=== PATIENT | male | born 1980 | race Caucasian/White ===

== ENCOUNTER 2017-09-16 07:25 | Inpatient (IN) | payer MEDICAID, OTHER ==
[~2017-09-16] VITALS: Ht 185.4 cm; Wt 86.9 kg
[2017-09-16] VITALS (10 sets, daily range): BP systolic 107–144; BP diastolic 61–93; PULSE 53–70; RESP 10–17; TEMP 98.1; Ht 185.4 cm; Wt 86.9 kg
[2017-09-16] MEDS ORDERED: ONDANSETRON 4 MG INJ IV STA (07:49)
[2017-09-16] MEDS ORDERED: SOD CHLORIDE 0.9% 1,000 ML IV STA (07:49)
[2017-09-16] MEDS ORDERED: KETOROLAC 30 MG INJ IV STA (07:49)
[2017-09-16] MEDS ORDERED: DEXAMETHASONE 10 MG/ML 1 ML INJ IV ONE (08:00)
[2017-09-16 08:23] LABS: BASOPHILS % 0.3 % (0.0-2.0); EOSINOPHILS % 0.3 % (0.0-7.0); HEMATOCRIT 42.6 % (42.0-52.0); HEMOGLOBIN 15.4 g/dl (14.0-18.0); LYMPHOCYTES # 3.1 10^3/ul (0.8-2.9); LYMPHOCYTES % 28.3 % (15.0-51.0); MEAN CORPUSCULAR HEMOGLOBIN 31.4 pg (29.0-33.0); MEAN CORPUSCULAR HGB CONC 36.2 g/dl (32.0-37.0); MEAN CORPUSCULAR VOLUME 86.8 fl (82.0-101.0); MEAN PLATELET VOLUME 11.2 fl (7.4-10.4); MONOCYTE # 1.2 10^3/ul (0.3-0.9); MONOCYTES % 10.7 % (0.0-11.0); NEUTROPHIL # 6.5 10^3/ul (1.6-7.5); NEUTROPHILS % 59.8 % (39.0-77.0); PLATELET COUNT 196 10^3/UL (140-415); RED BLOOD COUNT 4.91 10^6/ul (4.70-6.10); RED CELL DISTRIBUTION WIDTH 12.8 % (11.5-14.5); WHITE BLOOD COUNT 10.8 10^3/ul (4.8-10.8)
[2017-09-16 08:27] LABS: ADD UMIC NO; UR ASCORBIC ACID NEGATIVE (NEGATIVE); UR BILIRUBIN (Dip) NEGATIVE (NEGATIVE); UR BLOOD (Dip) NEGATIVE (NEGATIVE); UR CLARITY CLEAR (CLEAR); UR COLOR STRAW (YELLOW); UR GLUCOSE (Dip) NEGATIVE (NEGATIVE); UR KETONES (Dip) NEGATIVE (NEGATIVE); UR LEUKOCYTE ESTERASE (Dip) NEGATIVE Leu/ul (NEGATIVE); UR NITRITE (Dip) NEGATIVE (NEGATIVE); UR SPECIFIC GRAVITY (Dip) 1.006 (1.003-1.030); UR TOTAL PROTEIN (Dip) NEGATIVE (NEGATIVE); UR UROBILINOGEN (Dip) NEGATIVE (NEGATIVE)
[2017-09-16 08:44] LABS: ALBUMIN 4.6 g/dl (3.3-4.9); ALBUMIN/GLOBULIN RATIO 1.43; BILIRUBIN,INDIRECT 0.5 mg/dl (0-1.1); BILIRUBIN,TOTAL 0.5 mg/dl (0.2-1.3); CALCIUM 9.2 mg/dl (8.4-10.2); CREATININE 0.83 mg/dl (0.61-1.24); POTASSIUM 3.8 mmol/L (3.5-5.1); TOTAL PROTEIN 7.8 g/dl (6.1-8.1)
[2017-09-16] MEDS ORDERED: SOD CHLORIDE 0.9% 100 ML ONE (09:33)
[2017-09-16] MEDS ORDERED: IOHEXOL 300MG/ML 150 ML BTL ONE (09:33)
--- NOTE | 2017-09-16 10:47 | RADRPT ---
PROCEDURE: CT scan of the neck with contrast. CLINICAL INDICATION: pain, swelling TECHNIQUE: CT scan of the neck was performed. The patient was examined with the use of intravenou s administration of 100 cc of Isovue 300 iodinated contrast. No reported complications occurred. One or more of the following dose reduction techniques were used: Automated exposure control, Adjust ment of the mA and/or kV according to patient size, and/or use of iterative reconstruction technique . DICOM images are available. DOSE: CTDI = 9 mGy and the DLP = 229 mGy-cm. COMPARISON: None available FINDINGS: There is abnormal soft tissue thickening, ill-defined fluid density, and small foci of subcutaneous air identified in the anterior neck at the level of the thyroid cartilage. There is also small foci of air extending deeper into the neck into the right paraglottic space resulting in mild medial caitlin ation of the right vocal cord. No well-defined rim-enhancing fluid collection identified. Prominent submental lymph nodes and scattered upper cervical lymph nodes are seen. The bilateral parotid and submandibular glands are unremarkable The thyroid gland is unremarkable. The bilateral prestyloid parapharyngeal spaces and retropharyngeal spaces are unremarkable. The major cervical vasculature are patent. Left anterior ethmoid and left maxillary sinus mucosal thickening with fluid. Mastoids are clear. The osseous structures are unremarkable. No aggressive osteoblastic or osteolytic lesions of the vis ualized skull base or cervical spine. The visualized lung apices are clear. IMPRESSION: There is abnormal soft tissue thickening, ill-defined fluid density, and small foci of subcutaneous air identified in the anterior neck at the level of the thyroid cartilage. There is also small foci of air extending deeper into the neck into the right paraglottic space resulting in mild medial caitlin ation of the right vocal cord. The findings suggest anterior neck cellulitis and phlegmon without we ll-defined rim-enhancing abscess on this exam. Recommend close follow-up. Prominent submental and scattered upper cervical lymph nodes are probably reactive. Left paranasal sinus mucosal thickening with fluid. RPTAT: AA .Desean Friend MD, MD Date Time Electronically viewed and signed by .Desean Friend MD, on 09/16/2017 10:47 .T/
[2017-09-16] MEDS ORDERED: VANCOMYCIN 1 GM (PMX) 250 ML IVPB SCH (11:00)
[2017-09-16] MEDS ORDERED: CLINDAMYCIN 600 MG/D5W (PMX) 50 ML IVPB SCH (11:00)
--- NOTE | 2017-09-16 11:22 | ERD ---
ER Documentation Chief Complaint Chief Complaint SWELLING ON THROAT X1 WEEK, SEEN PMD 2 DAYS AGO (NIRAJ PHILLIPS PA-C) HPI 37-year-old male complaining of swelling to throat 1 week. Patient states that he was seen by his primary doctor 2 days ago was given Sudafed and pain medication. Patient states that he feels a clicking when he tries to swallow and it hurts to move his neck. Denies fever. Denies runny nose or cough. Patient feels like his sore throat is getting worse and is concerned that he may have difficulty breathing or swallowing because of the swelling. Denies medical problems. (NIRAJ PHILLIPS PA-C) ROS All systems reviewed and are negative except as per history of present illness. (NIRAJ PHILLIPS PA-C) Medications Home Meds No Active Prescriptions or Reported Meds Allergies Allergies: Coded Allergies: naproxen (Verified Allergy, Unknown, LIP SWELLING, 09/16/17) PMhx/Soc Medical and Surgical Hx: pt denies Medical Hx, pt denies Surgical Hx Hx Alcohol Use: Yes (occ) Hx Substance Use: No Hx Tobacco Use: No Smoking Status: Never smoker (NIRAJ PHILLIPS PA-C) Physical Exam Vitals Vital Signs Date Time Temp Pulse Resp B/P Pulse Ox O2 Delivery O2 Flow Rate FiO2 09/16/17 13:03 98.3 53 16 115/58 97 09/16/17 07:29 97.9 71 18 142/102 98 (KATIE FRANCOIS MD) Physical Exam GENERAL: The patient is well-appearing, well-nourished, in no acute distress HEENT: Atraumatic. Conjunctivae are pink. Pupils equal, round, and reactive to light. There is no scleral icterus. Tympanic membranes clear bilaterally. Oropharynx clear. No nystagmus or photophobia. No pain to the floor of the mouth NECK: Tender to palpation and fullness noted around the thyroid. No erythema or fluctuance. CHEST: Clear to auscultation bilaterally. There are no rales, wheezes or rhonchi. HEART: Regular rate and rhythm. No murmurs, clicks, rubs or gallops. No S3 or S4. (NIRAJ PHILLIPS PA-C) Physical Exam Const: Well-appearing, no apparent distress, nontoxic, no respiratory distress Head: Atraumatic Eyes: Normal conjunctiva, no periorbital swelling ENT: Normal external ears, nose, mouth. No intraoral swelling, erythema, or exudates. No tenderness or rigidity to palpation underneath the tongue. No elevation of the tongue. No stridor. No drooling. Somewhat hoarse voice Neck: Full range of motion, no meningismus, no crepitus to palpation. No skin discoloration. There is mild swelling of the anterior neck very subtle. Shotty cervical lymphadenopathy. Resp: Clear to auscultation bilaterally Cardio: Regular rate and rhythm, no murmur Abd: Soft, non tender, non distended. Normal bowel sounds Skin: No petechiae or rashes Back: No midline or flank tenderness Ext: No cyanosis, or edema Neur: Awake and alert Psych: Normal Mood and Affect (EKMEKKATIE AMOR MD) Result Diagram: 09/16/17 0800 09/16/17 0800 Results 24 hrs Laboratory Tests Test 09/16/17 08:00 09/16/17 08:15 White Blood Count 10.810^3/ul Red Blood Count 4.9110^6/ul Hemoglobin 15.4g/dl Hematocrit 42.6% Mean Corpuscular Volume 86.8fl Mean Corpuscular Hemoglobin 31.4pg Mean Corpuscular Hemoglobin Concent 36.2g/dl Red Cell Distribution Width 12.8% Platelet Count 97191^3/UL Mean Platelet Volume 11.2fl Neutrophils % 59.8% Lymphocytes % 28.3% Monocytes % 10.7% Eosinophils % 0.3% Basophils % 0.3% Nucleated Red Blood Cells % 0.0/100WBC Neutrophils # 6.510^3/ul Lymphocytes # 3.110^3/ul Monocytes # 1.210^3/ul Eosinophils # 0.010^3/ul Basophils # 0.010^3/ul Nucleated Red Blood Cells # 0.010^3/ul Sodium Level 144mmol/L Potassium Level 3.8mmol/L Chloride Level 106mmol/L Carbon Dioxide Level 25mmol/L Anion Gap 17 Blood Urea Nitrogen 12mg/dl Creatinine 0.83mg/dl Glucose Level 91mg/dl Calcium Level 9.2mg/dl Total Bilirubin 0.5mg/dl Direct Bilirubin 0.00mg/dl Indirect Bilirubin 0.5mg/dl Aspartate Amino Transf (AST/SGOT) 18IU/L Alanine Aminotransferase (ALT/SGPT) 34IU/L Alkaline Phosphatase 72IU/L Total Protein 7.8g/dl Albumin 4.6g/dl Globulin 3.20g/dl Albumin/Globulin Ratio 1.43 Lipase 44U/L Urine Color STRAW Urine Clarity CLEAR Urine pH 7.0 Urine Specific [place] 1.006 Urine Ketones NEGATIVEmg/dL Urine Nitrite NEGATIVEmg/dL Urine Bilirubin NEGATIVEmg/dL Urine Urobilinogen NEGATIVEmg/dL Urine Leukocyte Esterase NEGATIVELeu/ul Urine Hemoglobin NEGATIVEmg/dL Urine Glucose NEGATIVEmg/dL Urine Total Protein NEGATIVEmg/dl Current Medications Medications (Trade) Dose Ordered Sig/Radha Route PRN Reason Start Time Stop Time Status Last Admin Dose Admin Sodium Chloride (NS) 1,000 ml @ 1,000 mls/hr Q1H STAT IV 09/16/17 07:49 09/16/17 08:48 DC 09/16/17 08:01 Ondansetron HCl (Zofran Inj) 4 mg ONCE STAT IV 09/16/17 07:49 09/16/17 07:52 DC 09/16/17 08:01 Ketorolac Tromethamine (Toradol) 30 mg ONCE STAT IV 09/16/17 07:49 09/16/17 07:52 DC 09/16/17 08:02 Dexamethasone 10 mg 10 mg ONCE ONCE IV 09/16/17 08:00 09/16/17 08:01 DC 09/16/17 08:01 Sodium Chloride (NS) 100 ml @ ud STK-MED ONCE .ROUTE 09/16/17 09:33 09/16/17 09:34 DC Iohexol 150 ml 150 ml STK-MED ONCE .ROUTE 09/16/17 09:33 09/16/17 09:34 DC Clindamycin HCl/ Dextrose 50 ml @ 50 mls/hr ONCE IVPB 09/16/17 11:00 09/16/17 11:59 DC 09/16/17 12:00 Vancomycin HCl 250 ml @ 125 mls/hr ONCE IVPB 09/16/17 11:00 09/16/17 12:59 DC 09/16/17 12:51 Piperacillin Sod/ Tazobactam Sod 50 ml @ 100 mls/hr ONCE ONCE IV 09/16/17 13:00 09/16/17 13:29 DC 09/16/17 13:00 Sodium Chloride (NS) 1,000 ml @ 60 mls/hr [id number] IV 09/16/17 14:29 IV Flush (NS 3 ml) 3 ml PER PROTOCOL IV 09/16/17 14:30 Ondansetron HCl (Zofran Inj) 4 mg Q6H PRN IV NAUSEA AND/OR VOMITING 09/16/17 14:30 Acetaminophen (Tylenol Tab) 650 mg Q6H PRN PO PAIN LEVEL 1-3 OR FEVER 09/16/17 14:30 Acetaminophen (Tylenol Supp) 650 mg Q6H PRN [place] PAIN LEVEL 1-3 OR FEVER 09/16/17 14:30 Acetaminophen/ Hydrocodone Bitart ([place] (5/325)) 1 tab Q6H PRN PO MODERATE PAIN LEVEL 4-6 09/16/17 14:30 Acetaminophen/ Hydrocodone Bitart ([place] (5/325)) 2 tab Q6H PRN PO SEVERE PAIN LEVEL 7-10 09/16/17 14:30 Morphine Sulfate (morphine) 2 mg Q4H PRN IV SEVERE PAIN LEVEL 7-10 09/16/17 14:30 Docusate Sodium (Colace) 100 mg Q12H PRN PO CONSTIPATION 09/16/17 14:30 Magnesium Hydroxide (Milk Of Mag) 30 ml DAILY PRN PO CONSTIPATION 09/16/17 14:30 Bisacodyl (Dulcolax Supp) 10 mg DAILY PRN [place] CONSTIPATION 09/16/17 14:30 (KATIE FRANCOIS MD) Procedures/[facility] REPORT Patient: THIERNO WINTERS : 1980 Age: 37 Sex: M MR #: [id number] DOS: 09/16/17 0749 Ordering MD: EVERARDO PHILLIPS PA-C Location: [facility] Room/Bed: PROCEDURE: CT scan of the neck with contrast. CLINICAL INDICATION: pain, swelling TECHNIQUE: CT scan of the neck was performed. The patient was examined with the use of intravenous administration of 100 cc of Isovue 300 iodinated contrast. No reported complications occurred. One or more of the following dose reduction techniques were used: Automated exposure control, Adjustment of the mA and/or kV according to patient size, and/or use of iterative reconstruction technique. DICOM images are available. DOSE: CTDI = 9 mGy and the DLP = 229 mGy-cm. COMPARISON: None available FINDINGS: There is abnormal soft tissue thickening, ill-defined fluid density, and small foci of subcutaneous air identified in the anterior neck at the level of the thyroid cartilage. There is also small foci of air extending deeper into the neck into the right paraglottic space resulting in mild medial deviation of the right vocal cord. No well-defined rim-enhancing fluid collection identified. Prominent submental lymph nodes and scattered upper cervical lymph nodes are seen. The bilateral parotid and submandibular glands are unremarkable The thyroid gland is unremarkable. The bilateral prestyloid parapharyngeal spaces and retropharyngeal spaces are unremarkable. The major cervical vasculature are patent. Left anterior ethmoid and left maxillary sinus mucosal thickening with fluid. Mastoids are clear. The osseous structures are unremarkable. No aggressive osteoblastic or osteolytic lesions of the visualized skull base or cervical spine. The visualized lung apices are clear. IMPRESSION: There is abnormal soft tissue thickening, ill-defined fluid density, and small foci of subcutaneous air identified in the anterior neck at the level of the thyroid cartilage. There is also small foci of air extending deeper into the neck into the right paraglottic space resulting in mild medial deviation of the right vocal cord. The findings suggest anterior neck cellulitis and phlegmon without well-defined rim-enhancing abscess on this exam. Recommend close follow- up. Prominent submental and scattered upper cervical lymph nodes are probably reactive. Left paranasal sinus mucosal thickening with fluid. ER Course: 1L NS, 1Gram Vanco, 600mg IV Clinda given MDM: 37 yr old male complaining of swelling and fullness to neck. Patient has findings constant with neck abscess. He will be admitted for oral antibiotics and close evaluation. I have low suspicion for airway compromise or respiratory distress. Patient's case was reviewed with Dr. Francois and she agreed with plan. Patient is stable at the time of admission. (NIRAJ PHILLIPS PA-C) Attending attestation This patient was presented to me by the PA. I evaluated the patient myself and agree with the PAs decision to admit the patient. Reportedly the patient's neck pain and swelling are getting worse and on my exam I do hear some hoarseness in his voice, but he is protecting his airway. I reviewed the CT imaging and to read, and it seems the patient has some evidence of cellulitis, phlegmon, and evidence of subcutaneous air of unknown etiology, most likely related to infection. There is a concern for necrotizing soft tissue infection , however given the length of his symptoms, this is less likely, but remains on the differential. I paged Dr. Martin, the ENT physician on-call, and discussed the imaging findings with him and the patient's exam. He agrees that these findings are concerning and the patient needs to go to the OR urgently. He recommended adding Zosyn to his IV Antibiotic regimen for the time. He also recommended admission to the ICU for close airway monitoring. Accepting Care Team: Current data and ongoing care discussed. Time: Time of admission Primary Provider: Dr. Perales Consulting: Dr. Martin with ENT Outstanding Data: none (KATIE FRANCOIS MD) Departure Diagnosis: Primary Impression: Abscess or cellulitis, neck Additional Impression: Anterior neck pain Condition: Serious NIRAJ PHILLIPS PA-C Sep 16, 2017 11:22 KATIE FRANCOIS MD Sep 16, 2017 16:56
[2017-09-16] MEDS ORDERED: PIPER-TAZO 3.375 GM IV (PMX) 50 ML IV ONE (13:00)
[2017-09-16] MEDS ORDERED: SOD CHLORIDE 0.9% 1,000 ML IV SCH (14:29)
[2017-09-16] MEDS ORDERED: NACL 0.9% 3 ML SYG IV SCH (14:30)
[2017-09-16] MEDS ORDERED: ACETAMINOPHEN 325 MG TAB PO PRN (14:30)
[2017-09-16] MEDS ORDERED: BISACODYL 10 MG SUPP PR PRN (14:30)
[2017-09-16] MEDS ORDERED: ACETAMINOPHEN 650 MG SUPP PR PRN (14:30)
[2017-09-16] MEDS ORDERED: MAGNESIUM HYDROXIDE 30ML CUP PO PRN (14:30)
[2017-09-16] MEDS ORDERED: morphine 2 MG INJ IV PRN (14:30)
[2017-09-16] MEDS ORDERED: HYDROCODONE/APAP (5/325) TAB PO PRN ×2 (14:30)
[2017-09-16] MEDS ORDERED: DOCUSATE SODIUM 100 MG CAP PO PRN (14:30)
[2017-09-16] MEDS ORDERED: ONDANSETRON 4 MG INJ IV PRN (14:30)
--- NOTE | 2017-09-16 15:44 | HP ---
Date/Time of Note Date/Time of Note DATE: 09/16/17 TIME: 15:41 Assessment/Plan VTE Prophylaxis VTE Prophylaxis Intervention: ambulation, SCD's Assessment/Plan Chief Complaint/Hosp Course Assessment and plan 1. Cellulitis of neck with possible abscess. ENT physician was consulted as well as ID consult. Continue antibiotics for now. Will await further recommendations for ENT. Patient be placed in ICU for now for further monitoring of airway. Follow-up with recommendations. 2. Allergic rhinitis. Will resume patient's Zyrtec. Admission process time is greater than 40 minutes Discussed plan of care with Dr. Beltrán Problems: HPI/ROS Admit Date/Time Admit Date/Time Hx of Present Illness There is a 37-year-old male with only past medical history of allergic rhinitis who came to [facility] due to reports of increased swelling and throat pain on his neck for 1 week duration. According to the patient he started to have swelling in his neck roughly 1 week ago. He had no other associated symptoms with fever but did have some problem with swallowing. He reports that this progressively got worse. He did visit his general practitioner 2 days ago and was given Keflex antibiotic as well as a reported shot to help with swelling. He reports that this did not help and is swelling progressively got worse. He subsequently went to [facility] for further evaluation. Upon examination he did have a soft neck CT scan did show abnormal soft tissue thickening and ill-defined fluid density in the subcutaneous area of the neck at the level of the thyroid cartilage. There is also seen small foci of air extending deeper into the neck into the right paraglottic space resulting in mild medial deviation of the right vocal cord. Findings were suggestive of rim-enhancing abscess. On labs he was noted with no elevation in white count and his vital signs did appear stable and he was afebrile. Patient denies any problem with breathing at this time. He does however report also some minimal shrinkage of swelling. We will evaluate him for the aformentiond issues. ROS 12 point review of systems obtained and entirely negative except that mentioned in the history of present illness PMH/Family/Social Past Medical History Medical/surgical history 1. Appendectomy 2. Allergic rhinitis Family History Significant Family History: no pertinent family hx Social History Alcohol Use: none Smoking Status: Never smoker Drug Use: none Exam/Review of Systems Vital Signs Vitals Vital Signs Date Time Temp Pulse Resp B/P Pulse Ox O2 Delivery O2 Flow Rate FiO2 09/16/17 15:04 98.1 60 16 112/61 99 Room Air Exam Constitutional: alert, oriented Psych: nl mood/affect Head: normocephalic Eyes: nl conjunctiva Neck: other (Swelling noted on anterior portion of neck) Respiratory: clear to auscultation, normal air movement Cardiovascular: nl pulses, regular rate and rhythm Gastrointestinal: non-tender, soft Musculoskeletal: nl extremities to inspection Neurological: [employer]NA[employer] II-XII intact, nl mental status, nl speech Skin: nl turgor Labs Result Diagram: 09/16/17 0800 09/16/17 0800 Medications Medications Current Medications Sodium Chloride (NS) 1,000 ml @ 60 mls/hr [id number] IV ; Start 09/16/17 at 14:29 Ondansetron HCl (Zofran Inj) 4 mg Q6H PRN IV NAUSEA AND/OR VOMITING; Start 09/16/17 at 14:30 Acetaminophen (Tylenol Tab) 650 mg Q6H PRN PO PAIN LEVEL 1-3 OR FEVER; Start 09/16/17 at 14:30 Acetaminophen (Tylenol Supp) 650 mg Q6H PRN [place] PAIN LEVEL 1-3 OR FEVER; Start 09/16/17 at 14:30 Acetaminophen/ Hydrocodone Bitart ([place] (5/325)) 1 tab Q6H PRN PO MODERATE PAIN LEVEL 4-6; Start 09/16/17 at 14:30 Acetaminophen/ Hydrocodone Bitart ([place] (5/325)) 2 tab Q6H PRN PO SEVERE PAIN LEVEL 7-10; Start 09/16/17 at 14:30 Morphine Sulfate (morphine) 2 mg Q4H PRN IV SEVERE PAIN LEVEL 7-10; Start 09/16 at 14:30 Docusate Sodium (Colace) 100 mg Q12H PRN PO CONSTIPATION; Start 09/16/17 at 14: 30 Magnesium Hydroxide (Milk Of Mag) 30 ml DAILY PRN PO CONSTIPATION; Start at 14:30 Bisacodyl (Dulcolax Supp) 10 mg DAILY PRN [place] CONSTIPATION; Start 09/16/17 at 14 :30 Pantoprazole (Protonix Iv) 40 mg DAILY@06 IV ; Start 09/17/17 at 06:00 TAMERA STEINER 4, 2017 15:44
[2017-09-16] MEDS ORDERED: VANCOMYCIN IV PER PHARMACY XX SCH (17:30)
[2017-09-16] MEDS: PIPER-TAZO 3.375 GM IV (PMX) 50 ML IVPB SCH ×2 (17:39→23:18)
--- NOTE | 2017-09-16 19:23 | CONS ---
Date/Time of Note Date/Time of Note DATE: 09/16/17 TIME: 19:18 Assessment/Plan Assessment/Plan Additional Assessment/Plan Paraglottic phlegmon with air tracking into space. Normal laryngoscopy. No airway obstruction at this time. - Continue IV abx. - Keep NPO - If patient continues to demonstrate clinical improvement, then ok for discharge tomorrow on oral antibiotics. Recommend clindamycin as outpatient. Consultation Date/Type/Reason Admit Date/Time Date of Consultation: Sep 16, 2017 Type of Consultation: ENT Reason for Consultation Paraglottic abscess Hx of Present Illness 37 year old healthy male who admitted today for severe throat pain. Pain started last week and started on keflex on saturday. CT this morning demonstrated a paraglottic phlegmon vs abscess with air tracking into paraglottic space around region of thyroid notch. Pt states that he is "100% better" since this morning. Only c/o minimal throat pain. Denies dyspnea. Social History Alcohol Use: none Smoking Status: Never smoker Drug Use: none Exam/Review of Systems Vital Signs Vitals Vital Signs Date Time Temp Pulse Resp B/P Pulse Ox O2 Delivery O2 Flow Rate FiO2 09/16/17 18:00 63 15 124/79 95 Room Air 09/16/17 16:18 98.8 Exam ENMT: other (Flexible laryngoscopy performed - completely normal exam. Mild tenderness on palpation of thyroid cartilage.) Results Result Diagram: 09/16/17 0800 09/16/17 0800 Results 24 hrs Laboratory Tests Test 09/16/17 08:00 09/16/17 08:15 White Blood Count 10.8 Red Blood Count 4.91 Hemoglobin 15.4 Hematocrit 42.6 Mean Corpuscular Volume 86.8 Mean Corpuscular Hemoglobin 31.4 Mean Corpuscular Hemoglobin Concent 36.2 Red Cell Distribution Width 12.8 Platelet Count 196 Mean Platelet Volume 11.2 H Neutrophils % 59.8 Lymphocytes % 28.3 Monocytes % 10.7 Eosinophils % 0.3 Basophils % 0.3 Nucleated Red Blood Cells % 0.0 Neutrophils # 6.5 Lymphocytes # 3.1 H Monocytes # 1.2 H Eosinophils # 0.0 Basophils # 0.0 Nucleated Red Blood Cells # 0.0 Sodium Level 144 Potassium Level 3.8 Chloride Level 106 Carbon Dioxide Level 25 Anion Gap 17 H Blood Urea Nitrogen 12 Creatinine 0.83 Glucose Level 91 Calcium Level 9.2 Total Bilirubin 0.5 Direct Bilirubin 0.00 Indirect Bilirubin 0.5 Aspartate Amino Transf (AST/SGOT) 18 Alanine Aminotransferase (ALT/SGPT) 34 Alkaline Phosphatase 72 Total Protein 7.8 Albumin 4.6 Globulin 3.20 Albumin/Globulin Ratio 1.43 Lipase 44 Urine Color STRAW Urine Clarity CLEAR Urine pH 7.0 Urine Specific [place] 1.006 Urine Ketones NEGATIVE Urine Nitrite NEGATIVE Urine Bilirubin NEGATIVE Urine Urobilinogen NEGATIVE Urine Leukocyte Esterase NEGATIVE Urine Hemoglobin NEGATIVE Urine Glucose NEGATIVE Urine Total Protein NEGATIVE Medications Medications Current Medications Sodium Chloride (NS) 1,000 ml @ 60 mls/hr [id number] IV Last administered on 09/16t 17:00; Admin Dose 60 MLS/HR; Start 09/16/17 at 14:29 Ondansetron HCl (Zofran Inj) 4 mg Q6H PRN IV NAUSEA AND/OR VOMITING; Start 09/16/17 at 14:30 Acetaminophen (Tylenol Tab) 650 mg Q6H PRN PO PAIN LEVEL 1-3 OR FEVER; Start 09/16/17 at 14:30 Acetaminophen (Tylenol Supp) 650 mg Q6H PRN [place] PAIN LEVEL 1-3 OR FEVER; Start 09/16/17 at 14:30 Acetaminophen/ Hydrocodone Bitart ([place] (5/325)) 1 tab Q6H PRN PO MODERATE PAIN LEVEL 4-6; Start 09/16/17 at 14:30 Acetaminophen/ Hydrocodone Bitart ([place] (5/325)) 2 tab Q6H PRN PO SEVERE PAIN LEVEL 7-10; Start 09/16/17 at 14:30 Morphine Sulfate (morphine) 2 mg Q4H PRN IV SEVERE PAIN LEVEL 7-10; Start 09/16 at 14:30 Docusate Sodium (Colace) 100 mg Q12H PRN PO CONSTIPATION; Start 09/16/17 at 14: 30 Magnesium Hydroxide (Milk Of Mag) 30 ml DAILY PRN PO CONSTIPATION; Start at 14:30 Bisacodyl (Dulcolax Supp) 10 mg DAILY PRN [place] CONSTIPATION; Start 09/16/17 at 14 :30 Pantoprazole 40 mg 40 mg DAILY@06 IV ; Start 09/17/17 at 06:00 Piperacillin Sod/ Tazobactam Sod 50 ml @ 100 mls/hr Q6 IVPB Last administered on 09/16/17t 17:39; Admin Dose 100 MLS/HR; Start 09/16/17 at 18:00 Clindamycin HCl/ Dextrose 50 ml @ 50 mls/hr Q8 IVPB ; Start 09/16/17 at 22:00 Vancomycin HCl (Vancocin) 250 ml @ 125 mls/hr Q8H IVPB ; Start 09/16/17 at 20: 00 ODILON PITTMAN MD Sep 16, 2017 19:23
[2017-09-16] MEDS: VANCOMYCIN 1 GM in NS 250 ML IVPB SCH (19:56)
[2017-09-16] MEDS: CLINDAMYCIN 900 MG/D5W (PMX) 50 ML IVPB SCH (21:54)
--- NOTE | 2017-09-16 22:16 | CONS ---
DATE OF ADMISSION: 09/16/2017 DATE OF CONSULTATION: 09/16/2017 TYPE OF CONSULTATION: Infectious disease. REASON FOR CONSULTATION: Antibiotic management. HISTORY OF PRESENT ILLNESS: The patient is a 37-year-old male with a history of allergic r hinitis. He came to the emergency room. He reports increased swelling and pain in his throat and n rayne for the last week. He notes that he sneezed and then started to have swelling in his neck 1 wee k ago. He did not have fever but had some problems with swallowing. It got progressively worse. Autumn cruz was seen by a general practitioner who gave him Keflex 500 mg t.i.d. He reports this has not helpe d. He went to the emergency room. A soft tissue CT scan of the neck showed abnormal soft tissue th ickening and ill-defined fluid density in the subcutaneous areas of the neck at the level of the thy roid cartilage. There were also small foci of air extending deep into the neck, into the right para glottic resulting in mild medial deviation of the right vocal cord. Findings were suggestive of rim enhancing abscess. On labs, he was noted to have an elevation in white count, and his vital signs appeared to be stable. PAST MEDICAL HISTORY: As outlined, history of allergic rhinitis. PAST SURGICAL HISTORY: Status post appendectomy. FAMILY HISTORY: Noncontributory. SOCIAL HISTORY: Does not smoke, drink or abuse drugs. ALLERGIES: NONE TO PENICILLIN, SULFA OR FOODS. MEDICATIONS: Per chart. REVIEW OF SYSTEMS: As per HPI. PHYSICAL EXAMINATION: GENERAL: The patient is a well-developed, well-nourished male who is alert, responsive, in no acute distress. VITAL SIGNS: Stable. He is afebrile. SKIN: Without generalized rash. HEENT: Within normal limits. Mouth: I could not see any abnormalities. NECK: Has some swelling in the anterior portion of the neck. Neck is otherwise supple. LYMPH NODES: None palpable. CHEST: Decreased breath sounds at the bases. HEART: Without murmur or gallop. ABDOMEN: Soft, nontender, without organosplenomegaly or masses. EXTREMITIES: Without cyanosis, clubbing or edema. RECTAL AND GENITAL: Deferred. NEUROLOGIC: No focal neurological abnormalities. ANCILLARY LABORATORY DATA: White count 10.8, H and H of 15.4 and 42.6, platelet count 196,000. BUN and creatinine 12/0.83, glucose of 91. IMPRESSION AND PLAN: The patient was seen by Alena Gloria, I believe a PA for ENT, and Rosaura Francois who noted no pain in the floor of the neck. The patient was started on vancomycin, clinda mycin and Zosyn to which I concur. One blood culture was done. The question is whether this patien t would benefit from steroids as well. I will dictate my findings to the hospitalist. Dictated By: CLAYTON BALBUENA MD, JD/NTS Conf#: [id number] DID#: [id number] CC: CRISTIAN MURILLO MD;*End*
[2017-09-17] VITALS (13 sets, daily range): BP systolic 94–219; BP diastolic 57–171; PULSE 47–70; RESP 10–24
[2017-09-17] MEDS: VANCOMYCIN 1 GM in NS 250 ML IVPB SCH ×2 (03:00→12:00)
[2017-09-17] MEDS: CLINDAMYCIN 900 MG/D5W (PMX) 50 ML IVPB SCH (04:58)
[2017-09-17] MEDS: PIPER-TAZO 3.375 GM IV (PMX) 50 ML IVPB SCH ×2 (05:56→12:00)
[2017-09-17] MEDS ORDERED: PANTOPRAZOLE 40 MG INJ IV SCH (06:00)
[2017-09-17 06:57] LABS: ALBUMIN 3.7 g/dl (3.3-4.9); ALBUMIN/GLOBULIN RATIO 1.23; BILIRUBIN,INDIRECT 0.6 mg/dl (0-1.1); BILIRUBIN,TOTAL 0.6 mg/dl (0.2-1.3); CALCIUM 9.4 mg/dl (8.4-10.2); CHOL/HDL RATIO 4.2 RATIO; CREATININE 0.8 mg/dl (0.61-1.24); MAGNESIUM 2.1 mg/dl (1.7-2.5); PHOSPHORUS 4.1 mg/dl (2.5-4.9); POTASSIUM 4.1 mmol/L (3.5-5.1); TOTAL PROTEIN 6.7 g/dl (6.1-8.1)
[2017-09-17 07:27] LABS: THYROID STIMULATING HORMONE 0.943 MIU/L (0.465-4.680)
[2017-09-17] MEDS ORDERED: SACC250C PO (10:45)
[2017-09-17] MEDS ORDERED: CLIN-73 PO (10:45)
--- NOTE | 2017-09-17 10:47 | PDOCDIS ---
Discharge Instructions DIAGNOSIS Discharge Diagnosis 1. Paraglottic phlegmon 2. Allergic rhinitis CONDITION Patient Condition: Stable FOLLOW UP/APPOINTMENTS Follow-up Plan 1. Follow up with your primary care provider in one week TAMERA STEINER Sep 17, 2017 10:47
--- NOTE | 2017-09-17 12:31 | PN ---
DATE: 09/17/2017 SUBJECTIVE: No acute changes. The patient is alert, feels good, looks comfortable, no fevers. He is swallowing without difficulty. No labs this morning. ANTIMICROBIALS: 1. Vancomycin. 2. Zosyn. PHYSICAL EXAMINATION: GENERAL: Well-developed, middle-aged man who is alert, in no distress. HEENT: Head atraumatic, normocephalic. Sclerae anicteric. Buccal mucosa pink. CHEST: Rise symmetrical. Breath sounds clear. HEART: S1, S2. ABDOMEN: Soft, bowel sounds present. EXTREMITIES: No edema, no cyanosis. ASSESSMENT: Periglottic phlegmon, no airway obstruction, seen by ENT and cleared for discharge. PLAN: As per ENT recommendations, patient to be discharged home on oral clindamycin. The patient t o come back if symptoms get worse or not improve and follow with ENT as an outpatient. Discussed wi th patient and staff. Dictated By: LEONOR CAMACHO FELT H[employer] INSPECTOR AND P[employer]ER for [facility] Conf#: [id number] DID#: [id number]
[2017-09-18] MEDS ORDERED: PANTOPRAZOLE (EC) 40 MG TAB PO SCH (06:00)
== END 2017-09-17 13:35 | disposition home or self-care (01) | DRG 156 ==
LOC: FTE 07:25 → ICU 14:45
PROVIDERS: ADMIT Internal Medicine; ATTEND Internal Medicine
DX: J38.7 Other diseases of larynx (principal)
CPT/HCPCS: 36415; 70491; 80053; 80061; 81003; 83036; 83690; 83735; 84100; 84436; 84443; 84479; 85025; 87040; 96374; 96375; C9113; J1100; J1885; J2405; J2543; J3370; J7030; Q9967

== ENCOUNTER 2018-10-19 22:03 | Emergency (ER) | payer MEDICAID ==
[~2018-10-19] VITALS: Ht 185.4 cm; Wt 83.5 kg
[~2018-10-19 22:03] MED LIST: CLIN300C10 PO; SACC250C PO
[2018-10-19 22:12] VITALS: Ht 185.4 cm; Wt 83.5 kg
[2018-10-19] MEDS ORDERED: PROMETHAZINE/CODEINE 5ML CUP PO ONE (22:30)
[2018-10-19] MEDS ORDERED: ACETAMINOPHEN 325 MG TAB PO ONE (22:30)
[2018-10-19] MEDS ORDERED: OSLT75C PO (22:33)
[2018-10-19] MEDS ORDERED: PROM5SYR2 PO (22:33)
--- NOTE | 2018-10-19 22:35 | ERD ---
ER Documentation Chief Complaint Chief Complaint HEADACHE WITH FEVER, COUGH XTODAY HPI 30-year-old male presents with 1 day history of fever, body aches, cough and frontal headache. He also had diarrhea one time without blood or mucus. ROS All systems reviewed and are negative except as per history of present illness. Medications Home Meds Active Scripts Promethazine HCl/Codeine (Prometh-Codein 6.25-10 mg/5 ml) 5 Ml Syrup, 5 ML PO QID for 5 Days 6 oz Prov:MICHELE LANE MD 10/19/18 Oseltamivir Phosphate* (Tamiflu*) 75 Mg Capsule, 75 MG PO BID for 5 Days, CAP Prov:MICHELE LANE MD 10/19/18 Saccharomyces Boulardii* (Florastor*) 250 Mg Cap, 500 MG PO BID, #14 CAP Prov:TAMERA STEINER 09/17/17 Clindamycin Hcl* (Clindamycin Hcl*) 300 Mg Capsule, 300 MG PO Q8, #21 CAP Prov:TAMERA STEINER 09/17/17 Allergies Allergies: Coded Allergies: ibuprofen (Verified Allergy, Unknown, 09/16/17) lips swelling naproxen (Verified Allergy, Unknown, LIP SWELLING, 09/16/17) PMhx/Soc History of Surgery: Yes (appendectomy 2004) Anesthesia Reaction: No Hx Neurological Disorder: No Hx Respiratory Disorders: No Hx Cardiac Disorders: No Hx Psychiatric Problems: No Hx Miscellaneous Medical Probl: No Hx Alcohol Use: Yes (occassional/social) Hx Substance Use: No Hx Tobacco Use: No FmHx Family History: No diabetes, No coronary disease, No other Physical Exam Vitals Vital Signs Date Temp Pulse Resp B/P (MAP) Pulse Ox O2 O2 Flow FiO2 Time Delivery Rate 10/19/18 102.3 82 19 128/76 95 22:12 (93) Physical Exam Const: No acute distress Head: Atraumatic Eyes: Normal Conjunctiva ENT: Normal External Ears, Nose and Mouth. TMs and oropharynx normal. Neck: Full range of motion. No meningismus. Resp: Clear to auscultation bilaterally dry coarse cough without rales, wheezing or retractions. Cardio: Regular rate and rhythm, no murmurs Abd: Soft, non tender, non distended. Normal bowel sounds Skin: No petechiae or rashes Back: No midline or flank tenderness Ext: No cyanosis, or edema Neur: Awake and alert Psych: Normal Mood and Affect Results 24 hrs Current Medications Medications Dose Sig/Radha Start Time Status Last (Trade) Ordered Route PRN Stop Time Admin Dose Reason Admin 650 mg ONCE ONCE 10/19/18 DC Acetaminophen PO 22:30 10/19/18 (Tylenol 22:32 Tab) Promethazine 10 ml ONCE ONCE 10/19/18 DC HCl/ PO 22:30 10/19/18 Codeine 22:32 (Phenergan/ Codeine) Procedures/MDM Presents with 1 day history of fever, body aches and dry cough suggestive of influenza. He has no evidence of hypoxemia, respiratory distress, signs of pneumonia.. We will treat with Tamiflu, cough syrup, fever control, fluids, rest, primary care follow-up and return precautions. The patient was stable with no new complaints during the ER course. Clinically, there is no current evidence to suggest meningitis, sepsis, acute abdomen, pneumonia, stroke, acute coronary syndrome, pulmonary embolism, aortic dissection or any other emergent condition appearing to require further evaluation or hospitalization. Patient counseled regarding my diagnostic impression and care plan. Prior to discharge all questions answered. Pt agrees with treatment plan and understands strict return precautions. Pt is instructed to follow up with primary care provider within 24-48 hours. Precautionary instructions provided including instructions to return to the ER if not improving or for any worsening or changing symptoms or concerns. Departure Diagnosis: Primary Impression: Flu-like symptoms Additional Impression: Fever Fever type: unspecified Qualified Codes: R50.9 - Fever, unspecified Condition: Stable Patient Instructions: Fever Control (Adult), Influenza (Adult) Additional Instructions: Influenza may last up to a week. Recheck for new or worsening symptoms with primary care doctor. Take Tylenol every 4 hours and rest and drink plenty of fluids. MICHELE LANE MD Oct 19, 2018 22:35
[2018-10-19 23:10] VITALS: BP 125/79; PULSE 79; RESP 17
== END 2018-10-19 23:12 | disposition home or self-care (01) ==
LOC: FTE 22:03
DX: R51 Headache (principal); R50.9 Fever, unspecified; R05 Cough
CPT/HCPCS: Z7502; Z7610; 99283